=== PATIENT | female | born 1935 | race Two or more races ===

== ENCOUNTER 2023-06-26 19:16 | Inpatient (IN) | payer MEDICARE, MEDICAID ==
[~2023-06-26] VITALS: Ht 160 cm; Wt 59.0 kg
[2023-06-26 19:49] LABS: BASOPHILS # (AUTO) 0.1 K/uL (0.0-0.2); BASOPHILS % (AUTO) 0.7 % (0.0-2.0); EOSINOPHILS # (AUTO) 0.1 K/uL (0.0-0.7); EOSINOPHILS % (AUTO) 0.8 % (0.0-6.0); HEMATOCRIT 37 % (33-45); HEMOGLOBIN 11.5 g/dL (11.5-14.8); LYMPHOCYTES # (AUTO) 1.4 K/uL (0.8-4.8); LYMPHOCYTES % (AUTO) 14.5 % (20.0-44.0); MEAN CORPUSCULAR HEMOGLOBIN 25 PG (26.0-33.0); MEAN CORPUSCULAR HGB CONC 31 g/dl (31.0-36.0); MEAN CORPUSCULAR VOLUME 81 fL (82-100); MONOCYTES # (AUTO) 1.1 K/uL (0.1-1.30); MONOCYTES % (AUTO) 11.5 % (2.0-12.0); NEUTROPHILS # (AUTO) 7.1 K/uL (1.8-8.9); NEUTROPHILS % (AUTO) 72.5 % (43.0-81.0); PLATELET COUNT (AUTO) 284 K/uL (150-450); RED BLOOD CELL COUNT(AUTO) 4.58 MIL/uL (4.0-5.2); WHITE BLOOD COUNT (AUTO) 9.8 K/uL (4.3-11.0)
[2023-06-26 19:57] LABS: CALCIUM, SERUM 8.7 mg/dL (8.5-10.1); CARBON DIOXIDE 16 mmol/L (21-32); CHLORIDE 102 mmol/L (98-107); CREATININE 1.6 mg/dL (0.6-1.3); GLUCOSE 167 mg/dL (74-106); POTASSIUM 4.2 mmol/L (3.5-5.1); SODIUM SERUM 134 mmol/L (136-145); UREA NITROGEN, BLOOD 46 mg/dL (7-18)
[2023-06-26 20:09] LABS: ALANINE AMINOTRANSFERASE 26 U/L (12-78); ALBUMIN 2.6 g/dL (3.4-5.0); ALKALINE PHOSPHATASE 133 U/L (46-116); ASPARTATE AMINOTRANSFERASE 33 U/L (15-37); BILIRUBIN,DIRECT 0.9 mg/dL (0.0-0.2); BILIRUBIN,TOTAL 1.9 mg/dL (0.2-1.0); LIPASE 82 U/L (16-77); TOTAL PROTEIN, SERUM 7.2 g/dL (6.4-8.2)
[2023-06-26 20:43] LABS: NT-PRO BNP > 25000 pg/mL (0-125)
[2023-06-26] MEDS: ASPIRIN 325 MG TABLET PO SCH (21:10)
[2023-06-26] MEDS: FUROSEMIDE 20 MG/2 ML VIAL IV SCH (21:10)
[2023-06-26 21:30] VITALS: BP 117/61; TEMP 97.5; O2SAT 96
[2023-06-26 22:19] LABS: APPEARANCE,URINE Clear (CLEAR); BILIRUBIN,URINE SMALL (NEGATIVE); BLOOD, URINE Negative Ery/uL (NEGATIVE); COLOR,URINE YELLOW (YELLOW); KETONES,URINE Trace mg/dL (NEGATIVE); LEUKOCYTE ESTERASE ,URINE Negative (NEGATIVE); NITRITE, URINE Negative (NEGATIVE); PROTEIN,URINE 30 mg/dl (NEGATIVE); UGLUCOSE Negative (NEGATIVE)
[2023-06-26 22:29] LABS: ADD URINE CULTURE YES; BACTERIA,URINE 1+ /HPF (None Seen); MUCUS,URINE Few /LPF (None Seen); RBC,URINE NONE SEEN /HPF (0-2); WBC,URINE NONE SEEN /HPF (0-3); YEAST,URINE Many /HPF (None Seen)
[2023-06-26] MEDS ORDERED: ONDANSETRON HCL/PF 4 MG/2 ML VIAL IVP PRN (22:30)
[2023-06-26] MEDS ORDERED: MAG HYDROX/AL HYDROX/SIMETH 30 ML UDC PO PRN (22:30)
[2023-06-26] MEDS ORDERED: MAGNESIUM HYDROXIDE 30 ML UDC PO PRN (22:30)
[2023-06-26] MEDS ORDERED: ACETAMINOPHEN 325 MG TABLET PO PRN (22:30)
[2023-06-26] MEDS ORDERED: Z GUARD REMEDY 4 OZ OINT TP PRN (22:30)
[2023-06-26] MEDS: MORPHINE SULFATE INJ 2 MG/ML DISP.SYRIN IV PRN (23:23)
[2023-06-26] MEDS: ENOXAPARIN SODIUM 30 MG/0.3 ML DISP.SYRIN SQ SCH (23:25)
[2023-06-27] VITALS (7 sets, daily range): BP systolic 106–129; BP diastolic 74–98; TEMP 97.1–97.9; O2SAT 94–100
[2023-06-27 07:15] LABS: BASOPHILS # (AUTO) 0.1 K/uL (0.0-0.2); BASOPHILS % (AUTO) 1.1 % (0.0-2.0); EOSINOPHILS # (AUTO) 0.1 K/uL (0.0-0.7); EOSINOPHILS % (AUTO) 1.6 % (0.0-6.0); HEMATOCRIT 35 % (33-45); HEMOGLOBIN 11.3 g/dL (11.5-14.8); LYMPHOCYTES # (AUTO) 2.2 K/uL (0.8-4.8); MEAN CORPUSCULAR HEMOGLOBIN 27 PG (26.0-33.0); MEAN CORPUSCULAR HGB CONC 33 g/dl (31.0-36.0); MEAN CORPUSCULAR VOLUME 81 fL (82-100); MONOCYTES % (AUTO) 10.8 % (2.0-12.0); NEUTROPHILS # (AUTO) 5.5 K/uL (1.8-8.9); NEUTROPHILS % (AUTO) 61.5 % (43.0-81.0); PLATELET COUNT (AUTO) 257 K/uL (150-450); RED BLOOD CELL COUNT(AUTO) 4.28 MIL/uL (4.0-5.2); RED CELL DISTRIBUTION WIDTH 16.4 % (11.5-15.0)
[2023-06-27 08:42] LABS: CALCIUM, SERUM 8.8 mg/dL (8.5-10.1); CARBON DIOXIDE 18 mmol/L (21-32); CHLORIDE 103 mmol/L (98-107); CREATININE 1.4 mg/dL (0.6-1.3); GLUCOSE 110 mg/dL (74-106); PHOSPHORUS 3.3 mg/dL (2.5-4.9); POTASSIUM 4.1 mmol/L (3.5-5.1); SODIUM SERUM 138 mmol/L (136-145); UREA NITROGEN, BLOOD 42 mg/dL (7-18)
[2023-06-27] MEDS: ASPIRIN 81 MG TAB.CHEW PO SCH (09:00)
[2023-06-27] MEDS: FUROSEMIDE 20 MG/2 ML VIAL IV SCH (09:57)
[2023-06-27] MEDS: PANTOPRAZOLE 40 MG VIAL IV SCH (09:57)
[2023-06-27 11:27] LABS: CHOLESTEROL 123 mg/dL (<200); HDL CHOLESTEROL 25 mg/dL (40-60); LDL 78 mg/dL (0-99); THYROID STIMULATING HORMONE 5.087 uIU/mL (0.358-3.74); TRIGLYCERIDES 91 mg/dL (30-150)
[2023-06-27] MEDS ORDERED: ERGO500093 PO (16:16)
[2023-06-27] MEDS ORDERED: DILT120T8 PO (16:16)
[2023-06-27] MEDS ORDERED: LOSA25TA27 PO (16:16)
[2023-06-27] MEDS ORDERED: MEMA14CA5 PO (16:16)
[2023-06-27] MEDS ORDERED: ALLO100T PO (16:16)
[2023-06-27] MEDS ORDERED: LINA145C PO (16:16)
[2023-06-27] MEDS ORDERED: CYAN-51 PO (16:16)
[2023-06-27] MEDS ORDERED: ASPI-1420 PO (16:16)
[2023-06-27] MEDS ORDERED: FURO20TA4 PO (16:16)
[2023-06-27] MEDS ORDERED: TRAZ-252 PO (16:16)
[2023-06-28 01:39] VITALS: BP 121/98; TEMP 97.5; O2SAT 100
[2023-06-28 05:42] VITALS: BP 110/80; TEMP 97.7; O2SAT 99
[2023-06-28 07:55] LABS: BASOPHILS # (AUTO) 0.1 K/uL (0.0-0.2); BASOPHILS % (AUTO) 0.6 % (0.0-2.0); EOSINOPHILS # (AUTO) 0.1 K/uL (0.0-0.7); EOSINOPHILS % (AUTO) 0.6 % (0.0-6.0); HEMATOCRIT 36 % (33-45); HEMOGLOBIN 11.6 g/dL (11.5-14.8); LYMPHOCYTES # (AUTO) 1.6 K/uL (0.8-4.8); LYMPHOCYTES % (AUTO) 14.2 % (20.0-44.0); MEAN CORPUSCULAR HEMOGLOBIN 26 PG (26.0-33.0); MEAN CORPUSCULAR HGB CONC 32 g/dl (31.0-36.0); MEAN CORPUSCULAR VOLUME 81 fL (82-100); MONOCYTES # (AUTO) 0.9 K/uL (0.1-1.30); MONOCYTES % (AUTO) 7.7 % (2.0-12.0); NEUTROPHILS # (AUTO) 8.9 K/uL (1.8-8.9); NEUTROPHILS % (AUTO) 76.9 % (43.0-81.0); PLATELET COUNT (AUTO) 308 K/uL (150-450); RED BLOOD CELL COUNT(AUTO) 4.46 MIL/uL (4.0-5.2); RED CELL DISTRIBUTION WIDTH 16.5 % (11.5-15.0); WHITE BLOOD COUNT (AUTO) 11.5 K/uL (4.3-11.0)
[2023-06-28 08:00] VITALS: BP 119/95; TEMP 97.1; O2SAT 98
[2023-06-28 08:20] LABS: ALANINE AMINOTRANSFERASE 21 U/L (12-78); ALBUMIN 2.5 g/dL (3.4-5.0); ALKALINE PHOSPHATASE 124 U/L (46-116); ASPARTATE AMINOTRANSFERASE 24 U/L (15-37); BILIRUBIN,TOTAL 1.8 mg/dL (0.2-1.0); CALCIUM, SERUM 8.9 mg/dL (8.5-10.1); CARBON DIOXIDE 18 mmol/L (21-32); CHLORIDE 103 mmol/L (98-107); CREATININE 1.8 mg/dL (0.6-1.3); GLUCOSE 138 mg/dL (74-106); MAGNESIUM 2.1 mg/dL (1.8-2.4); PHOSPHORUS 4.2 mg/dL (2.5-4.9); SODIUM SERUM 138 mmol/L (136-145); TOTAL PROTEIN, SERUM 7.3 g/dL (6.4-8.2); UREA NITROGEN, BLOOD 49 mg/dL (7-18)
[2023-06-28 08:47] LABS: CREATINE KINASE, TOTAL 27 U/L (26-192)
[2023-06-28] MEDS: MEMANTINE HCL 5 MG TABLET PO SCH (11:10)
[2023-06-28] MEDS: ALLOPURINOL 100 MG TABLET PO SCH (11:10)
[2023-06-28 16:00] VITALS: BP 107/86; TEMP 97.3; O2SAT 98
[2023-06-28] MEDS: MORPHINE SULFATE INJ 4 MG/ML DISP.SYRIN IV PRN (18:13)
[2023-06-28 20:48] VITALS: BP 99/68; TEMP 97.7; O2SAT 100
[2023-06-28] MEDS: TRAZODONE 50 MG TABLET PO SCH (22:00)
[2023-06-29] VITALS (7 sets, daily range): BP systolic 100–109; BP diastolic 51–88; TEMP 97.3–97.9; O2SAT 98–100
[2023-06-29 08:12] LABS: PTH, INTACT 82 pg/mL (15-65)
[2023-06-29] MEDS: DILTIAZEM HCL CD 120 MG PO SCH (08:15)
[2023-06-29] MEDS: CYANOCOBALAMIN 500 MCG TABLET PO SCH (08:22)
[2023-06-29] MEDS: LEVOTHYROXINE SODIUM 25 MCG TABLET PO SCH (08:22)
[2023-06-29 11:53] LABS: BASOPHILS % (AUTO) 0.2 % (0.0-2.0); EOSINOPHILS # (AUTO) 0.1 K/uL (0.0-0.7); EOSINOPHILS % (AUTO) 0.8 % (0.0-6.0); HEMATOCRIT 37 % (33-45); HEMOGLOBIN 11.7 g/dL (11.5-14.8); LYMPHOCYTES # (AUTO) 1.5 K/uL (0.8-4.8); LYMPHOCYTES % (AUTO) 11.3 % (20.0-44.0); MEAN CORPUSCULAR HEMOGLOBIN 27 PG (26.0-33.0); MEAN CORPUSCULAR HGB CONC 32 g/dl (31.0-36.0); MEAN CORPUSCULAR VOLUME 83 fL (82-100); MONOCYTES % (AUTO) 7.6 % (2.0-12.0); NEUTROPHILS # (AUTO) 10.4 K/uL (1.8-8.9); NEUTROPHILS % (AUTO) 80.1 % (43.0-81.0); PLATELET COUNT (AUTO) 293 K/uL (150-450); RED BLOOD CELL COUNT(AUTO) 4.42 MIL/uL (4.0-5.2); RED CELL DISTRIBUTION WIDTH 16.5 % (11.5-15.0)
[2023-06-29 12:18] LABS: ALANINE AMINOTRANSFERASE 20 U/L (12-78); ALBUMIN 2.5 g/dL (3.4-5.0); ALKALINE PHOSPHATASE 112 U/L (46-116); ASPARTATE AMINOTRANSFERASE 24 U/L (15-37); BILIRUBIN,TOTAL 1.5 mg/dL (0.2-1.0); CARBON DIOXIDE 22 mmol/L (21-32); CHLORIDE 101 mmol/L (98-107); CREATININE 1.8 mg/dL (0.6-1.3); GLUCOSE 136 mg/dL (74-106); MAGNESIUM 2.2 mg/dL (1.8-2.4); POTASSIUM 3.8 mmol/L (3.5-5.1); SODIUM SERUM 137 mmol/L (136-145); TOTAL PROTEIN, SERUM 7.3 g/dL (6.4-8.2); UREA NITROGEN, BLOOD 51 mg/dL (7-18)
[2023-06-29 15:33] LABS: CREATININE, URINE 43.9 MG/DL (30.0-125.0); URINE TOTAL PROTEIN 17.8 mg/dL (0-11.9)
[2023-06-30] VITALS (10 sets, daily range): BP systolic 90–116; BP diastolic 70–81; TEMP 97.5–98.4; O2SAT 98–100
[2023-06-30 05:09] LABS: *SPE A/G RATIO 0.6 (0.7-1.7); *SPE ALBUMIN 2.6 g/dL (2.9-4.4); *SPE ALPHA-1-GLOBULIN 0.4 g/dL (0.0-0.4); *SPE ALPHA-2-GLOBULIN 0.9 g/dL (0.4-1.0); *SPE GLOBULIN, TOTAL 4.1 g/dL (2.2-3.9); *SPE M-SPIKE Not Observed g/dL (Not Observed); *SPE PROTEIN TOTAL 6.7 g/dL (6.0-8.5); *SPEGAMMA GLOBULIN 1.8 g/dL (0.4-1.8)
[2023-06-30 07:41] LABS: BASOPHILS # (AUTO) 0.1 K/uL (0.0-0.2); BASOPHILS % (AUTO) 0.6 % (0.0-2.0); EOSINOPHILS # (AUTO) 0.2 K/uL (0.0-0.7); EOSINOPHILS % (AUTO) 1.9 % (0.0-6.0); HEMATOCRIT 35 % (33-45); HEMOGLOBIN 11.2 g/dL (11.5-14.8); LYMPHOCYTES # (AUTO) 1.4 K/uL (0.8-4.8); LYMPHOCYTES % (AUTO) 13.1 % (20.0-44.0); MEAN CORPUSCULAR HEMOGLOBIN 27 PG (26.0-33.0); MEAN CORPUSCULAR HGB CONC 32 g/dl (31.0-36.0); MEAN CORPUSCULAR VOLUME 84 fL (82-100); MONOCYTES # (AUTO) 0.9 K/uL (0.1-1.30); MONOCYTES % (AUTO) 8.8 % (2.0-12.0); NEUTROPHILS % (AUTO) 75.6 % (43.0-81.0); PLATELET COUNT (AUTO) 240 K/uL (150-450); RED BLOOD CELL COUNT(AUTO) 4.14 MIL/uL (4.0-5.2); RED CELL DISTRIBUTION WIDTH 16.7 % (11.5-15.0); WHITE BLOOD COUNT (AUTO) 10.6 K/uL (4.3-11.0)
[2023-06-30 07:48] LABS: CALCIUM, SERUM 8.9 mg/dL (8.5-10.1); CARBON DIOXIDE 26 mmol/L (21-32); CHLORIDE 101 mmol/L (98-107); CREATININE 1.8 mg/dL (0.6-1.3); GLUCOSE 109 mg/dL (74-106); MAGNESIUM 2.1 mg/dL (1.8-2.4); PHOSPHORUS 3.5 mg/dL (2.5-4.9); POTASSIUM 3.8 mmol/L (3.5-5.1); SODIUM SERUM 136 mmol/L (136-145); UREA NITROGEN, BLOOD 50 mg/dL (7-18)
[2023-06-30] MEDS: ENSURE ENLIVE CHOC 237 ML CAN PO SCH (16:31)
[2023-07-01] VITALS: BP 110/79; TEMP 97.7; O2SAT 99
[2023-07-01 04:00] VITALS: BP 111/72; TEMP 97.7; O2SAT 100
[2023-07-01] MEDS: PANTOPRAZOLE 40 MG/PACK PACK PO SCH (09:14)
[2023-07-01 10:19] VITALS: BP 118/82; TEMP 97.4; O2SAT 99
[2023-07-01] MEDS: LACTULOSE 10 G/15 ML UDC (PYXIS) PO ONE (11:04)
[2023-07-01 12:00] VITALS: BP 110/16; TEMP 97.5; O2SAT 98
[2023-07-01 20:00] VITALS: BP 107/74; TEMP 97.5; O2SAT 99
[2023-07-01] MEDS: SENNOSIDES/DOCUSATE SODIUM 1 TAB TABLET PO SCH (21:22)
[2023-07-02] VITALS: BP 106/77; TEMP 97.7; O2SAT 98
[2023-07-02 04:00] VITALS: BP 101/79; TEMP 97.7; O2SAT 97
[2023-07-02 08:00] VITALS: BP 96/84; TEMP 97.6; O2SAT 92
[2023-07-02] MEDS: POLYETHYLENE GLYCOL 3350 17 GM POWD.PACK PO SCH (08:05)
[2023-07-02 12:00] VITALS: BP 89/53; TEMP 97.3; O2SAT 97
[2023-07-02 16:00] VITALS: BP 98/73; TEMP 97.9; O2SAT 100
[2023-07-02 21:55] VITALS: BP 103/80; TEMP 97.7; O2SAT 98
[2023-07-03] VITALS (8 sets, daily range): BP systolic 98–194; BP diastolic 65–90; TEMP 97.2–98.3; O2SAT 93–100
[2023-07-03] MEDS: METOPROLOL TARTRATE 25 MG TABLET PO SCH (14:14)
[2023-07-03] MEDS: APIXABAN 2.5 MG TABLET PO SCH (16:09)
== END 2023-07-03 23:05 | disposition home or self-care (01) | DRG 280 ==
LOC: ER 19:17 → MED 20:45 → TELE 22:39
PROVIDERS: ADMIT Nurse Practitioner Acute Care; ATTEND Nurse Practitioner Acute Care
DX: I13.0 Hypertensive heart and chronic kidney disease with heart failure and stage 1 through stage 4 chronic kidney disease, or unspecified chronic kidney disease (principal); I21.A1 Myocardial infarction type 2; G93.41 Metabolic encephalopathy; S72.032A Displaced midcervical fracture of left femur, initial encounter for closed fracture; I50.23 Acute on chronic systolic (congestive) heart failure; E44.0 Moderate protein-calorie malnutrition; N17.9 Acute kidney failure, unspecified; R62.7 Adult failure to thrive; N18.9 Chronic kidney disease, unspecified; E03.9 Hypothyroidism, unspecified; D64.9 Anemia, unspecified; I25.10 Atherosclerotic heart disease of native coronary artery without angina pectoris; E88.09 Other disorders of plasma-protein metabolism, not elsewhere classified; I25.2 Old myocardial infarction; I42.9 Cardiomyopathy, unspecified; F03.90 Unspecified dementia, unspecified severity, without behavioral disturbance, psychotic disturbance, mood disturbance, and anxiety; R53.1 Weakness; Z95.5 Presence of coronary angioplasty implant and graft; Z95.2 Presence of prosthetic heart valve; Z95.828 Presence of other vascular implants and grafts; R73.9 Hyperglycemia, unspecified; E83.9 Disorder of mineral metabolism, unspecified; X58.XXXA Exposure to other specified factors, initial encounter; Y93.9 Activity, unspecified; Y92.009 Unspecified place in unspecified non-institutional (private) residence as the place of occurrence of the external cause; M89.8X9 Other specified disorders of bone, unspecified site; E80.4 Gilbert syndrome; Z68.23 Body mass index [BMI] 23.0-23.9, adult; Z86.718 Personal history of other venous thrombosis and embolism; I51.3 Intracardiac thrombosis, not elsewhere classified
CPT/HCPCS: 36415; 71045-TC; 73700-TC; 76770-TC; 80048-TC; 80053-TC; 80061-TC; 80076-TC; 81001; 82550-TC; 82570-TC; 82962-TC; 83690-TC; 83735-TC; 83880; 83970; 84100-TC; 84155; 84165; 84300-TC; 84439-TC; 84443-TC; 84484-TC; 85025-TC; 87081-TC; 87086-TC; 92526; 92611-TC; 93307-TC; 94760-TC; 94799-TC; 97110-TC; 97535-TC; C9113; G0378; J1650; J1940; J2270